=== PATIENT | male | born 1975 | race African-American/Black ===

== ENCOUNTER 2017-07-06 13:34 | Day surgery (SDC) | payer OTHER ==
[2017-07-05 14:16] VITALS: BMI 53.8
[2017-07-06 15:21] VITALS: TEMP 98.7
[2017-07-06 15:58] VITALS: BP 116/74; PULSE 69
== END 2017-07-06 16:48 | disposition home or self-care (01) ==
LOC: JASU-ENDO 13:34
PROVIDERS: ATTEND Internal Medicine Gastroenterology
PROC: 0DJD8ZZ Inspection of Lower Intestinal Tract, Via Natural or Artificial Opening Endoscopic (ICD-10-PCS; principal; 2017-07-06 14:30)
DX: Z12.11 Encounter for screening for malignant neoplasm of colon (principal); Z80.0 Family history of malignant neoplasm of digestive organs; K64.8 Other hemorrhoids

== ENCOUNTER 2019-12-19 13:23 | Emergency (ER) | payer OTHER ==
[2019-12-19 13:28] VITALS: TEMP 98; BMI 47.3
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
--- NOTE | 2019-12-19 15:41 | PDOC ---
Documentation entered by Oscar Jay SCRIBE, acting as scribe for Jan Felix MD. Jan Felix MD: This documentation has been prepared by the veronicaibe, Oscar Jay SCRIBE, under my direction and personally reviewed by me in its entirety. I confirm that the documentation accurately reflects all work, treatment, procedures, and medical decision making performed by me. Attending Attestation - Resident Resident Name: QuincyEtelvina - ED Attending Attestation I have performed the following: I have examined & evaluated the patient, The case was reviewed & discussed with the resident, I agree w/resident's findings & plan, Exceptions are as noted - HPI HPI: 12/19/19 15:12 The patient is a 44 year old male with a significant past medical history of morbid obesity, chronic back/neck pain secondary to disc herniation, trigeminal neuralgia, right leg DVT (on Coumadin), narcolepsy, and fatty liver who presents to the emergency department for evaluation of swelling to the right lower extremity that began today. The patient reports feeling off when standing today. He also endorses left knee discomfort but no swelling on that side. The patient denies dizziness or lightheadedness, denies LOC, denies chest/a bdominal/back pain, cough, and shortness of breath. Denies fever, chills, nausea, vomiting, and/or any GI symptoms. Denies any symptoms. Denies any other symptoms. Denies change in vision to me. Allergies: NKDA PCP: Dr. Almeida - Physicial Exam PE: 12/19/19 14:23 "GENERAL: Awake, alert, and fully oriented, in no acute distress. HEAD: No signs of trauma EYES: PERRLA, EOMI, sclera anicteric, conjunctiva clear ENT: Auricles normal inspection, hearing grossly normal, nares patent, oropharynx clear without exudates. Moist mucosa NECK: Nontender, no stepoffs, Normal ROM, supple, no lymphadenopathy, JVD, or masses LUNGS: Breath sounds equal, clear to auscultation bilaterally. No wheezes, and no crackles HEART: Regular rate and rhythm, normal S1 and S2, no murmurs, rubs or gallops ABDOMEN: Soft, nontender, normoactive bowel sounds. No guarding, no rebound. No masses EXTREMITIES: Normal range of motion, no edema. No clubbing or cyanosis. No cor ds, erythema, or tenderness NEUROLOGICAL: Cranial nerves II through XII intact. 5/5 strength and sensation in all extremities, Normal speech, normal gait, normal cerebellar function SKIN: Warm, Dry, normal turgor, no rashes or lesions noted." - Medical Decision Making 12/19/19 15:44 44 M with R knee discomfort. No asymmetry on exam but given h/o DVT, will evaluate with US. - Labs - RLE doppler 12/19/19 17:42 Doppler negative for DVT Labs wnl Pt is well appearing, with normal vitals. Clinically stable for DC at this time. I discussed the physical exam findings, ancillary test results and final diagnoses with the patient. I answered all of the patient's questions. The patient was satisfied with the care received and felt comfortable with the discharge plan and treatment plan. The patient agrees to follow up with the primary care physician within 24-72 hours. Discharge - Discharge Information Problems reviewed: Yes Clinical Impression/Diagnosis: Knee pain Qualifiers: Chronicity: unspecified Laterality: right Qualified Code(s): M25.561 - Pain in right knee Condition: Stable Disposition: HOME - Follow up/Referral Referrals: Arjun Almeida [Primary Care Provider] - - Patient Discharge Instructions Patient Printed Discharge Instructions: DI for Knee Pain Additional Instructions: You came into the ER lightheadedness, knee discomfort, and leg swelling. In the ED, you were evaluated with blood work, ultrasound, and electrocardiogram. Your electrocardiogram was normal. Your ultrasound did not show any signs of a blood clot in your leg (DVT). Your blood work indicated that your INR was subtherapeutic. You do not appear to be an acute need for immediate hospitalization You were advised to follow up with your primary care doctor within 1 week, follow up regarding your INR level and your warfarin dosing. You were advised to follow up with your orthopedist about your knee pain. Come back to the ER immediately with any new or worsening concerns. Thank you for coming to the [facility]. We hope you feel better soon! - Post Discharge Activity
--- NOTE | 2019-12-19 16:04 | EKG ---
Test Reason : Blood Pressure : / mmHG Vent. Rate : 069 BPM Atrial Rate : 069 BPM P-R Int : 146 ms QRS Dur : 094 ms QT Int : 442 ms P-R-T Axes : 051 -06 -02 degrees QTc Int : 473 ms NORMAL SINUS RHYTHM NONSPECIFIC T WAVE ABNORMALITY PROLONGED QT ABNORMAL ECG WHEN COMPARED WITH ECG OF 21-AUG-2010 14:06, NO SIGNIFICANT CHANGE WAS FOUND Confirmed by MD Jefferson, Ian ([id number]) on 12/19/2019 4:03:51 PM Referred By: Confirmed By:Ian Paulino MD
[2019-12-19 17:10] LABS: BASO % 0.4 % (0-2.0); EOS % 0.7 % (0-4.5); HEMATOCRIT 43.9 % (35.4-49); HEMOGLOBIN 14.3 GM/dL (11.7-16.9); LYMPH % 26.3 % (8-40); MCHC 32.5 g/dl (32.0-35.9); MEAN CELL VOLUME 89.2 fl (80-96); MEAN PLT VOLUME 7.6 fl (7.5-11.1); MONO % 9.7 % (3.8-10.2); NEUT % 62.9 % (42.8-82.8); PLATELET COUNT 276 K/MM3 (134-434); RBC 4.92 M/mm3 (4.00-5.60); RDW 14.7 % (11.9-15.9); WHITE BLOOD COUNT 5.8 K/mm3 (4.0-10.0)
[2019-12-19 17:19] LABS: INR 1.95 (0.83-1.09); PROTHROMBIN TIME (PATIENT) 23.2 SEC (9.7-13.0)
[2019-12-19 17:36] LABS: ALBUMIN 3.6 g/dl (3.4-5.0); BILIRUBIN,TOTAL 0.2 mg/dL (0.2-1); CALCIUM 8.7 mg/dL (8.5-10.1); CREATININE 0.9 mg/dL (0.55-1.3); POTASSIUM 3.9 mmol/L (3.5-5.1); TOT PROT 7.3 g/dl (6.4-8.2)
[2019-12-19 18:54] VITALS: BP 118/71; PULSE 67
== END 2019-12-19 18:54 | disposition home or self-care (01) ==
LOC: JER 13:23
DX: M25.561 Pain in right knee (principal)
CPT/HCPCS: 36415; 80053; 85025; 85610; 93005; 93010; 93971-TC; 99284-25